=== PATIENT | female | born 1980 | race Caucasian/White ===

== ENCOUNTER 2021-02-18 09:47 | Emergency (ER) | payer OTHER ==
[2021-02-18] MEDS ORDERED: Alum Hydrox/Mag Hydrox/Simeth 15 ML, Lidocaine 2% 5 ML PO ONE ×2 (10:16)
[2021-02-18] MEDS ORDERED: Ondansetron 4 MG/2 ML SDV IVPUSH ONE (10:16)
[2021-02-18] MEDS ORDERED: Morphine 4 MG/ML Syringe IVPUSH ONE (10:16)
[2021-02-18] MEDS ORDERED: Lactated Ringers 1,000 ML IV SCH (10:30)
[2021-02-18 11:17] LABS: BLOOD UREA NITROGEN,BUN 7 mg/dL (7.0-18.0); CARBON DIOXIDE,CO2 26.1 mmol/L (21.0-32.0); CHLORIDE,CL 105 mmol/L (98-107); GLUCOSE RANDOM 126 mg/dL (74-106); LIPASE 86 U/L (73-393); POTASSIUM,K 3.7 mmol/L (3.5-5.1); SODIUM,NA 143 mmol/L (136-145)
--- NOTE | 2021-02-18 11:42 | EDM.PDOC ---
ED HPI GENERAL MEDICAL PROBLEM - General Chief Complaint: Abdominal Pain Stated Complaint: PAIN ON LFT SIDE Time Seen by Provider: 02/18/21 09:54 - History of Present Illness INITIAL COMMENTS - FREE TEXT/NARRATIVE: CHIEF COMPLAINT(S): Pain on the left side HISTORY OF PRESENT ILLNESS: This is a 59-year-old woman with a past medical history of irritable bowel syndrome, fibromyalgia, and asthma who comes to the emergency department with a chief complaint of pain on the left side. The patient states that starting since this morning she is bearing feeling pain on the inside of her left rib cage. She states that the pain is sharp rated 8 out of 10 and constant. She states that moving any way makes it worse. She states that she has not yet tried anything for the pain. She denies any other chest pain, shortness of breath but states that she does feel some nausea and vomiting. She states that she has not yet tried any pain medication therefore there are no relieving factors. She denies any fevers or chills. REVIEW OF SYSTEMS: Constitutional: Denies fever, chills. Eyes: Denies eye pain Ears, Nose, Mouth, & Throat: Denies earache Cardiovascular: Positive for left-sided rib cage pain Respiratory: Denies shortness of breath Gastrointestinal: Positive for nausea. Denies vomiting, diarrhea, hematochezia Genitourinary: Denies hematuria Skin:Denies a rash MSK: Denies joint pain Neurological: Denies blurred vision, numbness, tingling, weakness Psychiatric: Denies depression PAST MEDICAL HISTORY: As per history of present illness and as reviewed below otherwise noncontributory. SURGICAL HISTORY: As per history of present illness and as reviewed below otherwise noncontributory. LMP: Hysterectomy SOCIAL HISTORY: As per history of present illness and as reviewed below otherwise noncontributory. FAMILY HISTORY: As per history of present illness and as reviewed below otherwise noncontributory. EXAMINATION OF ORGAN SYSTEMS/BODY AREAS: Constitutional: Blood pressure was 178/105, heart rate 89, respiratory 16 with an oxygen saturation of 97% on room air. Temperature 36.2 General: Overall well-appearing woman who is in no acute distress. Psychiatric: Appropriate mood and affect. Eyes: No scleral icterus or conjunctival erythema ENMT: Moist mucous membranes. No pharyngeal erythema Cardiovascular: Regular, rate, and rhythm. No gallops, murmurs, or rubs. Bilateral upper extremity pulses symmetric and intact. No peripheral edema. No JVD. There is left-sided chest wall tenderness to palpation without any overlying skin changes. Respiratory: Lungs clear to auscultation bilaterally. No wheezes, rales, or rhonchi. Gastrointestinal: Soft, diffusely tender to palpation, nondistended. No rebound or guarding. Normoactive bowel sounds Genitourinary: No suprapubic tenderness Musculoskeletal: Normal range of motion. Skin: No lesions or abrasions. Neurological: Alert, GCS 15 MEDICAL DECISION MAKING AND COURSE IN THE ED WITH INTERPRETATION/REVIEW OF DIAGNOSTIC STUDIES: This is a 40-year-old woman with a past medical history of irritable bowel syndrome and fibromyalgia who comes to the emergency department with left-sided chest wall pain with an examination revealing left-sided chest wall pain and epigastric/diffuse abdominal pain. At this time the patient has normal vital signs and appears well. The patient is low risk for ACS. No EKG will be obtained. Will obtain basic labs including CBC, CMP, lipase, and urinalysis. We will treat the patient symptomatically with GI cocktail, morphine, and Zofran. We will provide the patient with 1 L of LR bolus. Patient is mildly hypertensive however no intervention needed at this time. Laboratory: CBC is unremarkable. CMP is unremarkable. hCG is negative. Urinalysis was a clean catch and was negative for leukocyte esterase, negative for nitrites, and negative for blood. Interpretation: Negative. On reevaluation the patient stated that her symptoms did improve. At this time her work-up is negative. I did discuss her at this time that is uncertain as to what is causing the patient's symptoms however she could be experiencing musculoskeletal pain versus strain given the tenderness on examination. I recommended the use of Tylenol and Motrin and using [id number] lidocaine or Voltaren cream. She is to return for any new or worsening symptoms. She was amenable discharge at this time and had no further questions. DISPOSITION: The patient was discharged home in stable condition. The patient will follow up with primary care physician within 2 to 3 days CONDITION: Fair PROCEDURES: None FINAL IMPRESSION(S)/DIAGNOSES: 1. Acute left-sided chest wall pain 2. Acute abdominal pain, unknown etiology Suman Jules M.D. Left Upper Abdomen Pain Score (Numeric/FACES): 8 - Related Data Allergies Allergy/AdvReac Type Severity Reaction Status Date / Time No Known Allergies Allergy Verified 02/18/21 10:01 Home Meds: Home Meds Acetaminophen [Tylenol Extra Strength] 1,000 mg PO Q6HR #56 tablet 02/18/21 [Rx] Ibuprofen 600 mg PO Q6HR #28 tablet 02/18/21 [Rx] Past Medical History HEENT History: Reports: Impaired Vision Cardiovascular History: Reports: Hypertension Respiratory History: Reports: Asthma Gastrointestinal History: Reports: Cholelithiasis Genitourinary History: Reports: None BUFFER INFLATED PAD History: Reports: Musculoskeletal History: Reports: None Neurological History: Reports: None Psychiatric History: Reports: None Endocrine/Metabolic History: Reports: None Hematologic History: Reports: None Immunologic History: Reports: None Oncologic (Cancer) History: Reports: None Dermatologic History: Reports: None - Infectious Disease History Infectious Disease History: Reports: Chicken Pox - Past Surgical History GI Surgical History: Reports: Appendectomy, Cholecystectomy Female Surgical History: Reports: Section, Hysterectomy Social & Family History - Tobacco Use Tobacco Use Status *Q: Never Tobacco User - Caffeine Use Caffeine Use: Reports: Coffee - Recreational Drug Use Recreational Drug Use: No ED ROS GENERAL - Review of Systems Review Of Systems: See Below ED EXAM, GENERAL - Physical Exam Exam: See Below Course - Vital Signs Last Recorded V/S: Last Vital Signs Temp 36.2 C 02/18/21 10:01 Pulse 87 02/18/21 11:52 Resp 18 02/18/21 11:52 BP 147/91 H 02/18/21 11:52 Pulse Ox 97 02/18/21 11:52 - Orders/Labs/Meds Labs: Laboratory Tests 02/18/21 02/18/21 02/18/21 Range/Units 10:03 10:03 10:15 WBC 10.80 (4.0-11.0) K/uL RBC 4.79 (4.30-5.90) M/uL Hgb 14.0 (12.0-16.0) g/dL Hct 43.3 (36.0-46.0) % MCV 90.4 (80.0-98.0) fL MCH 29.2 (27.0-32.0) pg MCHC 32.3 (31.0-37.0) g/dL RDW Std Deviation 43.4 (28.0-62.0) fl RDW Coeff of Marisol 13 (11.0-15.0) % Plt Count 366 (150-400) K/uL MPV 9.80 (7.40-12.00) fL Neut % (Auto) 69.4 (48.0-80.0) % Lymph % (Auto) 23.2 (16.0-40.0) % [place] % (Auto) 5.8 (0.0-15.0) % Eos % (Auto) 1.4 (0.0-7.0) % Baso % (Auto) 0.2 (0.0-1.5) % Neut # (Auto) 7.5 H (1.4-5.7) K/uL Lymph # (Auto) 2.5 H (0.6-2.4) K/uL [place] # (Auto) 0.6 (0.0-0.8) K/uL Eos # (Auto) 0.2 (0.0-0.7) K/uL Baso # (Auto) 0.0 (0.0-0.1) K/uL Nucleated RBC % 0.0 /100WBC Nucleated RBCs # 0 K/uL Sodium 143 (136-145) mmol/L Potassium 3.7 (3.5-5.1) mmol/L Chloride 105 (98-107) mmol/L Carbon Dioxide 26.1 (21.0-32.0) mmol/L BUN 7 (7.0-18.0) mg/dL Creatinine 0.8 (0.6-1.0) mg/dL Est Cr Clr Drug Dosing 103.11 mL/min Estimated GFR (MDRD) > 60.0 ml/min Glucose 126 H (74-106) mg/dL Calcium 9.0 (8.5-10.1) mg/dL Total Bilirubin 0.2 (0.2-1.0) mg/dL AST 25 (15-37) IU/L ALT 42 (14-63) IU/L Alkaline Phosphatase 105 (46-116) U/L Total Protein 8.2 (6.4-8.2) g/dL Albumin 3.7 (3.4-5.0) g/dL Globulin 4.5 H (2.6-4.0) g/dL Albumin/Globulin Ratio 0.8 L (0.9-1.6) Lipase 86 (73-393) U/L Urine Color Urine Appearance Urine pH (5.0-8.0) Ur Specific [place] (1.001-1.035) Urine Protein (NEGATIVE) mg/dL Urine Glucose (UA) (NEGATIVE) mg/dL Urine Ketones (NEGATIVE) mg/dL Urine Occult Blood (NEGATIVE) Urine Nitrite (NEGATIVE) Urine Bilirubin (NEGATIVE) Urine Urobilinogen (<2.0) EU/dL Ur Leukocyte Esterase (NEGATIVE) Urine HCG, Qual NEGATIVE (NEGATIVE) 02/18/21 Range/Units 10:15 WBC (4.0-11.0) K/uL RBC (4.30-5.90) M/uL Hgb (12.0-16.0) g/dL Hct (36.0-46.0) % MCV (80.0-98.0) fL MCH (27.0-32.0) pg MCHC (31.0-37.0) g/dL RDW Std Deviation (28.0-62.0) fl RDW Coeff of Marisol (11.0-15.0) % Plt Count (150-400) K/uL MPV (7.40-12.00) fL Neut % (Auto) (48.0-80.0) % Lymph % (Auto) (16.0-40.0) % [place] % (Auto) (0.0-15.0) % Eos % (Auto) (0.0-7.0) % Baso % (Auto) (0.0-1.5) % Neut # (Auto) (1.4-5.7) K/uL Lymph # (Auto) (0.6-2.4) K/uL [place] # (Auto) (0.0-0.8) K/uL Eos # (Auto) (0.0-0.7) K/uL Baso # (Auto) (0.0-0.1) K/uL Nucleated RBC % /100WBC Nucleated RBCs # K/uL Sodium (136-145) mmol/L Potassium (3.5-5.1) mmol/L Chloride (98-107) mmol/L Carbon Dioxide (21.0-32.0) mmol/L BUN (7.0-18.0) mg/dL Creatinine (0.6-1.0) mg/dL Est Cr Clr Drug Dosing mL/min Estimated GFR (MDRD) ml/min Glucose (74-106) mg/dL Calcium (8.5-10.1) mg/dL Total Bilirubin (0.2-1.0) mg/dL AST (15-37) IU/L ALT (14-63) IU/L Alkaline Phosphatase (46-116) U/L Total Protein (6.4-8.2) g/dL Albumin (3.4-5.0) g/dL Globulin (2.6-4.0) g/dL Albumin/Globulin Ratio (0.9-1.6) Lipase (73-393) U/L Urine Color YELLOW Urine Appearance CLEAR Urine pH 6.0 (5.0-8.0) Ur Specific [place] >= 1.030 (1.001-1.035) Urine Protein NEGATIVE (NEGATIVE) mg/dL Urine Glucose (UA) NEGATIVE (NEGATIVE) mg/dL Urine Ketones NEGATIVE (NEGATIVE) mg/dL Urine Occult Blood NEGATIVE (NEGATIVE) Urine Nitrite NEGATIVE (NEGATIVE) Urine Bilirubin NEGATIVE (NEGATIVE) Urine Urobilinogen 0.2 (<2.0) EU/dL Ur Leukocyte Esterase NEGATIVE (NEGATIVE) Urine HCG, Qual (NEGATIVE) Meds: Medications Discontinued Medications Generic Name Dose Route Start Last Admin Trade Name Freq PRN Reason Stop Dose Admin Al Hydroxide/Mg Hydroxide 15 0 ml 02/18/21 10:16 02/18/21 10:31 ml/ Lidocaine HCl 5 ml PO 02/18/21 10:17 1 each ONETIME ONE Administration Lactated Ringer's 1,000 mls @ 999 mls/hr 02/18/21 10:30 02/18/21 10:29 Ringers, Lactated IV 999 mls/hr ASDIRECTED EVENS Administration Morphine Sulfate 4 mg 02/18/21 10:16 02/18/21 10:30 Morphine 4 Mg/Ml Syringe IVPUSH 02/18/21 10:17 4 mg ONETIME ONE Administration Ondansetron HCl 4 mg 02/18/21 10:16 02/18/21 10:29 Ondansetron 4 Mg/2 Ml Sdv IVPUSH 02/18/21 10:17 4 mg ONETIME ONE Administration Departure - Departure Time of Disposition: 11:40 Disposition: Home, Self-Care 01 Condition: Fair Clinical Impression: Chest wall pain - Discharge Information *PRESCRIPTION DRUG MONITORING PROGRAM REVIEWED*: No *COPY OF PRESCRIPTION DRUG MONITORING REPORT IN PATIENT CHRISTINA: No Prescriptions: Ibuprofen 600 mg PO Q6HR #28 tablet Acetaminophen [Tylenol Extra Strength] 1,000 mg PO Q6HR #56 tablet Instructions: Chest Wall Pain, [id number], Pain Medicine Instructions, [id number] Referrals: PCP,None [Primary Care Provider] - Forms: ED Department Discharge Additional Instructions: You evaluate today on an emergent basis. At this time your work-up was negative. Given the location of your pain I do suspect musculoskeletal strain. I do recommend the use of Tylenol and Motrin every 6 hours alternating for the next 48 hours and then as needed. I also recommend using ice alternating with heat 4 times a day to the affected area. You may use [id number] lidocaine cream or Voltaren cream. If you have any new or worsening symptoms please return to the emergency department. I do recommend that you follow-up with your primary care physician within 2 to 3 days. Please use: Tylenol 500-1000mg every 6 hours (DO NOT TAKE MORE THAN 4000mg in 1 day) Ibuprofen 400mg every 6 hours (Take with food as it can cause ulcers, GI upset) Example schedule: 8:00 AM (Tylenol 500-1000mg) 11:00 AM (Ibuprofen 400mg) 2:00 PM (Tylenol 500-1000mg) 5:00 PM (Ibuprofen 400mg) In addition to Tylenol and Motrin you may use over the counter creams such as Voltaren Cream or Lidocaine Cream (Lidoderm) as needed 4 times a day for symptomatic relief. Ice the area 20 minutes 4 times per day [facility] [address] [place] [id number] [address] [address] The patient is informed of any results of their evaluation and diagnostic workup and all questions are answered. They are given discharge instructions and return precautions. The patient is stable for discharge. The patient states they und erstand and agree with the plan and that they will return if their symptoms get worse or if they have any new concerns. The following information is given to patients seen in the emergency department who are being discharged to home. This information is to outline your options for follow-up care. We provide all patients seen in our emergency department with a follow-up referral. The need for follow-up, as well as the timing and circumstances, are variable depending upon the specifics of your emergency department visit. If you don't have a primary care physician on staff, we will provide you with a referral. We always advise you to contact your personal physician following an emergency department visit to inform them of the circumstance of the visit and for follow-up with them and/or the need for any referrals to a consulting specialist. The emergency department will also refer you to a specialist when appropriate. This referral assures that you have the opportunity for follow-up care with a specialist. All of these measure are taken in an effort to provide you with optimal care, which includes your follow-up. Under all circumstances we always encourage you to contact your private physician who remains a resource for coordinating your care. When calling for follow-up care, please make the office aware that this follow-up is from your recent emergency room visit. If for any reason you are refused follow-up, please contact the [facility] Emergency Department at and asked to speak to the emergency department charge nurse. Sepsis Event Note (ED) - Evaluation Sepsis Screening Result: No Definite Risk
== END 2021-02-18 11:53 | disposition home or self-care (01) ==
LOC: MW.ED 09:47
DX: R07.89 Other chest pain (principal); R10.84 Generalized abdominal pain; J45.909 Unspecified asthma, uncomplicated; I10 Essential (primary) hypertension
CPT/HCPCS: 36415; 80053; 81003; 81025; 83690; 85025; 96374; 96375; 99284; A9270; J2270; J2405; J7120; 99283

== ENCOUNTER 2021-03-24 07:11 | Day surgery (SDC) | payer OTHER ==
[~2021-03-24 07:11] MED LIST: Lactated Ringers 1,000 ML IV SCH; Sodium Chloride 0.9% 10 ML SDV IV PRN; Sodium Chloride 0.9% 10 ML Syringe FLUSH PRN; Sodium Chloride 0.9% 2.5 ML Syringe FLUSH PRN
--- NOTE | 2021-03-24 08:17 | PCM.PREANE ---
Preanesthetic Assessment - Anesthesia/Transfusion/Family Hx Anesthesia History: Prior Anesthesia Reaction Type of Anesthesia Reaction: Excessive Nausea/Vomiting Family History of Anesthesia Reaction: No Transfusion History: No Prior Transfusion(s) - Review of Systems General: No Symptoms Pulmonary: No Symptoms Cardiovascular: No Symptoms Gastrointestinal: No Symptoms Neurological: No Symptoms Other: Reports: None - Physical Assessment NPO Status Date: 03/24/21 NPO Status Time: 00:01 Vital Signs: Last Vital Signs Temp 98.4 F 03/24/21 07:30 Pulse 74 03/24/21 07:30 Resp 15 03/24/21 07:30 BP 166/92 H 03/24/21 07:30 Pulse Ox 96 03/24/21 07:30 Height: 5 ft 10 in Weight: 271 lb ASA Class: 2 Mental Status: Alert & Oriented x3 Airway Class: Mallampati = 3 Dentition: Reports: Normal Dentition ROM/Head Extension: Limited/Partial Lungs: Clear to Auscultation, Normal Respiratory Effort Cardiovascular: Regular Rate, Regular Rhythm - Lab Values: Laboratory Last Values Urine HCG, Qual NEGATIVE (NEGATIVE) 03/24/21 07:20 - Allergies Allergies/Adverse Reactions: Allergies Allergy/AdvReac Type Severity Reaction Status Date / Time grass pollen-perennial rye, Allergy Hives Verified 03/20/21 14:27 standar lactose Allergy Diarrhea Verified 03/20/21 14:27 shellfish derived Allergy Nausea and Verified 03/20/21 14:27 Vomiting - Anesthesia Plan Pre-Op Medication Ordered: None - Acknowledgements Anesthesia Type Planned: General Anesthesia Pt an Appropriate Candidate for the Planned Anesthesia: Yes Alternatives and Risks of Anesthesia Discussed w Pt/Guardian: Yes Pt/Guardian Understands and Agrees with Anesthesia Plan: Yes Additional Comments: npo anxiety depression exercise induced asthma prn inhalers IBS fibromyalgia obesity bmi 39 tob none yes THC etoh occ luba par no questions very nauseated after her last EGD PreAnesthesia Questionnaire HEENT History: Reports: Other (See Below) Other HEENT History: wears glasses Cardiovascular History: Reports: None Respiratory History: Reports: Asthma Gastrointestinal History: Reports: GERD, Hiatal Hernia, Irritable Bowel Syndrome Genitourinary History: Reports: None COOK BOAT History: Reports: Musculoskeletal History: Reports: Fibromyalgia Neurological History: Reports: None Psychiatric History: Reports: None Endocrine/Metabolic History: Reports: Obesity/BMI 30+ Hematologic History: Reports: None Immunologic History: Reports: None Oncologic (Cancer) History: Reports: None Dermatologic History: Reports: Other (See Below) Other Dermatologic History: Rosacea - Infectious Disease History Infectious Disease History: Reports: Chicken Pox - Past Surgical History Head Surgeries/Procedures: Reports: None Cardiovascular Surgical History: Reports: None Respiratory Surgical History: Reports: None GI Surgical History: Reports: Appendectomy, Cholecystectomy, Colonoscopy, EGD Female Surgical History: Reports: Section, Hysterectomy, Oophorectomy, Tubal Ligation Other Female Surgeries/Procedures: x3 Endocrine Surgical History: Reports: None Neurological Surgical History: Reports: None Musculoskeletal Surgical History: Reports: None Oncologic Surgical History: Reports: None - SUBSTANCE USE Tobacco Use Status *Q: Never Tobacco User Recreational Drug Use History: Yes Recreational Drug Type: Reports: Marijuana/Hashish - HOME MEDS Home Medications: Home Meds Albuterol [Ventolin HFA] 1 puff INH ASDIRECTED PRN 03/20/21 [History] Pantoprazole [ProTONIX] 40 mg PO ACBREAKFAST 03/20/21 [History] - CURRENT (IN HOUSE) MEDS Current Meds: Current Medications Lactated Ringer's (Ringers, Lactated) 1,000 mls @ 125 mls/hr IV ASDIRECTED EVENS Last Admin: 03/24/21 07:45 Dose: 125 mls/hr Documented by: Sodium Chloride (Sodium Chloride 0.9% 10 Ml Syringe) 10 ml FLUSH ASDIRECTED PRN PRN Reason: Keep Vein Open Sodium Chloride (Sodium Chloride 0.9% 2.5 Ml Syringe) 2.5 ml FLUSH ASDIRECTED PRN PRN Reason: Keep Vein Open Sodium Chloride (Sodium Chloride 0.9% 10 Ml Syringe) 10 ml FLUSH ASDIRECTED PRN PRN Reason: Keep Vein Open Sodium Chloride (Sodium Chloride 0.9% 2.5 Ml Syringe) 2.5 ml FLUSH ASDIRECTED PRN PRN Reason: Keep Vein Open Sodium Chloride (Sodium Chloride 0.9% 10 Ml Sdv) 10 ml IV ASDIRECTED PRN PRN Reason: IV Use
[2021-03-24] MEDS ORDERED: Propofol 200 MG/20 ML SDV ONE ×3 (08:19→09:23)
[2021-03-24] MEDS ORDERED: Ondansetron 4 MG/2 ML SDV ONE ×2 (09:08)
[2021-03-24] MEDS ORDERED: Midazolam 1 MG/ML 2 ML SDV ONE (09:12)
--- NOTE | 2021-03-24 09:40 | PCM.OPNOTE ---
- General Post-Op/Procedure Note Date of Surgery/Procedure: 03/24/21 Operative Procedure(s): Diagnostic EGD and colonoscopy Findings: Normal appearing EGD and colonoscopy Pre Op Diagnosis: Abdominal pain, nausea, bloating, hiatal hernia Post-Op Diagnosis: same Anesthesia Technique: MAC Primary Surgeon: Sully Ross Condition: Good
--- NOTE | 2021-03-24 10:01 | PCM.POSTAN ---
POST ANESTHESIA ASSESSMENT - MENTAL STATUS Mental Status: Alert (no anesthetic problems), Oriented - VITAL SIGNS Vital Signs: Last Vital Signs Temp 98.4 F 03/24/21 07:30 Pulse 74 03/24/21 09:40 Resp 22 H 03/24/21 09:40 BP 136/85 03/24/21 09:40 Pulse Ox 94 L 03/24/21 09:40 - RESPIRATORY Respiratory Status: Respiratory Rate WNL, Airway Patent, O2 Saturation Stable - CARDIOVASCULAR CV Status: Pulse Rate WNL, Blood Pressure Stable - GASTROINTESTINAL GI Status: No Symptoms - POST OP HYDRATION Hydration Status: Adequate & Stable
--- NOTE | 2021-03-24 10:02 | PCM48HPAN ---
Post Anesthesia Note - EVALUATION WITHIN 48HRS OF ANESTHETIC Vital Signs in Normal Range: Yes Patient Participated in Evaluation: Yes Respiratory Function Stable: Yes Airway Patent: Yes Cardiovascular Function Stable: Yes Hydration Status Stable: Yes Pain Control Satisfactory: Yes Nausea and Vomiting Control Satisfactory: Yes Mental Status Recovered: Yes Vital Signs: Last Vital Signs Temp 98.4 F 03/24/21 07:30 Pulse 74 03/24/21 09:40 Resp 22 H 03/24/21 09:40 BP 136/85 03/24/21 09:40 Pulse Ox 94 L 03/24/21 09:40
--- NOTE | 2021-03-26 12:51 | OR ---
SURGEON: SULLY ROSS MD DATE OF PROCEDURE: 03/24/2021 PREOPERATIVE DIAGNOSES: Nausea, vomiting, bloating, and abdominal pain. POSTOPERATIVE DIAGNOSIS: Hiatal hernia. PROCEDURE PERFORMED: Diagnostic esophagogastroduodenoscopy and colonoscopy. PRIMARY SURGEON: Sully Ross MD ANESTHESIA: MAC. INSTRUMENT USED: Olympus endoscope and colonoscope. EXTENT OF THE EXAM: To the second portion of duodenum, to the cecum. PREPARATION: Good. LIMITATIONS: None. INDICATIONS FOR EXAMINATION: The patient is a 40-year-old female who presents to my clinic with ongoing abdominal bloating, nausea, vomiting, and generalized abdominal pain, especially in the lower abdomen. The patient and I discussed the need for diagnostic EGD and colonoscopy. I explained the procedure, expected perioperative course, and the risks. She verbalized understanding and wishes to proceed. PROCEDURE IN DETAIL: The patient was brought to the endoscopy suite and placed in the left lateral decubitus position. A time-out was completed verifying the patient's name, age, date of , allergies, and procedure to be performed. Monitored anesthesia care was induced and a bite block was placed in the patient's mouth. Continuous oxygen was provided via nasal cannula throughout the procedure. After adequate sedation was achieved, a well-lubricated endoscope was placed in the patient's mouth and advanced under direct visualization to the second portion of duodenum. This appeared normal and a photograph was taken. The scope was then fully withdrawn while examining the color, texture, anatomy, and integrity of the mucosa of the upper GI tract. The duodenum, stomach, and esophagus, all appeared grossly normal. I saw no evidence of inflammation or ulceration. Biopsies were taken in the duodenal bulb and sent to Pathology, labeled as duodenum. With the scope in the stomach, I took a photograph of the pylorus and GE junction. The patient was noted to have a small hiatal hernia. Biopsies were taken of the gastric antrum, body, and fundus, and sent for histologic review and H pylori testing. The Z-line appeared grossly normal in the distal esophagus. The distal esophageal mucosa appeared normal. A biopsy was taken there and sent to Pathology, labeled as esophagus. The scope was removed and this portion of procedure terminated. A digital rectal exam was performed. The patient did have enlarged hemorrhoids. A well-lubricated colonoscope was inserted into the rectum and advanced under direct visualization to the level of the cecum. The cecum was identified by both visual and anatomic landmarks. A photograph was taken of the cecal cap; however, I was unable to retroflex the scope within the cecum due to looping of the scope more proximally. The scope was then fully withdrawn while examining the color, texture, anatomy, and integrity of the mucosa from the cecum to the anal canal. I saw no evidence of inflammation or ulceration. I was able to look at the terminal ileum. This appeared healthy. Random biopsies were taken throughout the colon and sent to Pathology for histologic review. The scope was brought into the rectum and retroflexed to allow visualization of the anal canal opening. This appeared normal and a photograph was taken. The scope was then straightened out and fully withdrawn. The cecum to anus time was 10 minutes. The patient tolerated the procedure well, was transferred to the PACU in stable condition. ENDOSCOPIC DIAGNOSIS: Hiatal hernia. RECOMMENDATIONS: The patient is currently on a PPI. I will follow up with her in clinic to discuss her pathology results and determine the next steps in treatment. DREW PAIZ /[id number]
== END 2021-03-24 10:07 | disposition home or self-care (01) ==
LOC: MW.SDS 07:11
PROVIDERS: ATTEND Surgery
DX: K44.9 Diaphragmatic hernia without obstruction or gangrene (principal); K64.8 Other hemorrhoids; K22.8 Other specified diseases of esophagus; K31.89 Other diseases of stomach and duodenum; K63.89 Other specified diseases of intestine; K21.9 Gastro-esophageal reflux disease without esophagitis; K58.9 Irritable bowel syndrome, unspecified; E66.9 Obesity, unspecified; Z68.38 Body mass index [BMI] 38.0-38.9, adult; Z91.013 Allergy to seafood; Z91.09 Other allergy status, other than to drugs and biological substances; Z79.899 Other long term (current) drug therapy; Z98.890 Other specified postprocedural states
CPT/HCPCS: 43239; 45380; 81025; J2250; J2405; J2704; J7120; 00813; 88305; 88312

== ENCOUNTER 2022-07-12 11:37 | Emergency (ER) | payer OTHER ==
[2022-07-12] MEDS ORDERED: Sodium Chloride 0.9% 1,000 ML IV ONE (11:40)
[2022-07-12] MEDS ORDERED: Morphine 4 MG/ML VIAL IVPUSH ONE (11:47)
[2022-07-12] MEDS ORDERED: Ondansetron 4 MG/2 ML SDV IVPUSH ONE (11:47)
[2022-07-12 13:10] LABS: BLOOD UREA NITROGEN,BUN 11 mg/dL (7.0-18.0); CARBON DIOXIDE,CO2 23.2 mmol/L (21.0-32.0); CHLORIDE,CL 104 mmol/L (98-107); GLUCOSE RANDOM 105 mg/dL (74-106); POTASSIUM,K 3.4 mmol/L (3.5-5.1); SODIUM,NA 139 mmol/L (136-145)
[2022-07-12 13:12] LABS: ESTIMATED GFR 112 mL/min (>60)
== END 2022-07-12 13:55 | disposition home or self-care (01) ==
LOC: MW.ED 11:37
DX: R10.9 Unspecified abdominal pain (principal); K21.9 Gastro-esophageal reflux disease without esophagitis; E66.9 Obesity, unspecified; Z68.30 Body mass index [BMI] 30.0-30.9, adult; Z91.013 Allergy to seafood; Z91.011 Allergy to milk products; Z91.048 Other nonmedicinal substance allergy status; Z20.822 Contact with and (suspected) exposure to COVID-19
CPT/HCPCS: 36415; 74176; 80053; 81003; 85025; 87635; 96361; 96374; 96375; 99284; J2270; J2405; J7030; U0002

== ENCOUNTER 2023-10-13 06:41 | Day surgery (SDC) | payer OTHER ==
[~2023-10-13 06:41] MED LIST changes: -Sodium Chloride 0.9% 10 ML SDV IV PRN; +Sodium Chloride 0.9% 20 ML SDV IV PRN; +cefOXitin 2 GM in Sodium Chloride 0.9% 50 ML IV ONE
[2023-10-13] MEDS ORDERED: Lidocaine 2% 5 ML SDV ONE (06:45)
[2023-10-13] MEDS ORDERED: propofoL 50 ML ONE (06:45)
[2023-10-13] MEDS ORDERED: Ondansetron 4 MG/2 ML SDV ONE ×2 (06:45)
[2023-10-13] MEDS ORDERED: dexmedeTOMIDine HCl 200 MCG/2 ML SDV ONE (06:53)
[2023-10-13] MEDS ORDERED: Dexamethasone 4 MG/ML 5 ML MDV ONE (06:53)
[2023-10-13] MEDS ORDERED: droPERidol 5 MG/2 ML SDV IVPUSH PRN (07:04)
[2023-10-13] MEDS ORDERED: Albuterol 0.083% 2.5 MG/3 ML Neb Soln NEB PRN (07:04)
[2023-10-13] MEDS ORDERED: Metoclopramide 10 MG/2 ML SDV IVPUSH PRN (07:04)
[2023-10-13] MEDS ORDERED: Morphine 2 MG/ML SYRINGE IVPUSH PRN (07:04)
[2023-10-13] MEDS ORDERED: HYDROmorphone 1 MG/ML Syringe IVPUSH PRN (07:04)
[2023-10-13] MEDS ORDERED: Ondansetron 4 MG/2 ML SDV IVPUSH PRN (07:04)
[2023-10-13] MEDS ORDERED: fentaNYL 50 MCG/ML SDV IVPUSH PRN (07:04)
[2023-10-13] MEDS ORDERED: Naloxone 0.4 MG/ML SDV IVPUSH PRN (07:04)
[2023-10-13] MEDS ORDERED: cefOXitin 1 GM Vial ONE ×2 (07:14)
[2023-10-13] MEDS ORDERED: Metoclopramide 10 MG/2 ML SDV ONE (07:15)
[2023-10-13] MEDS ORDERED: Lidocaine 2% 11 ML Jelly Filled Syringe ONE (07:21)
[2023-10-13] MEDS ORDERED: Bupivacaine 0.5% 30 ML SDV ONE (07:21)
[2023-10-13] MEDS ORDERED: Magnesium Sulfate (4.06 MEQ/ML) 5 GM/10 ML SDV ONE (07:22)
[2023-10-13] MEDS ORDERED: Ketorolac 30 MG/ML SDV ONE (08:11)
== END 2023-10-13 12:13 | disposition home or self-care (01) ==
LOC: MW.SDS 06:41
PROVIDERS: ATTEND Surgery
DX: K64.8 Other hemorrhoids (principal); K44.9 Diaphragmatic hernia without obstruction or gangrene; K58.9 Irritable bowel syndrome, unspecified; K21.9 Gastro-esophageal reflux disease without esophagitis; Z79.899 Other long term (current) drug therapy; Z91.013 Allergy to seafood; Z91.048 Other nonmedicinal substance allergy status
CPT/HCPCS: 46947; A9270; J0131; J0665; J0694; J1100; J1885; J2704; J2765; J3475; J7120; J2405; J3490